=== PATIENT | male | born 1940 | race Caucasian/White ===

== ENCOUNTER 2017-06-15 15:37 | Emergency (ER) | payer MEDICARE, OTHER ==
[~2017-06-15] VITALS: Ht 170.2 cm; Wt 75.0 kg
[2017-06-15 15:57] VITALS: Ht 170.2 cm; Wt 75.0 kg
[2017-06-15 16:12] LABS: BASOPHILS % 0.8 % (0.0-2.0); EOSINOPHILS # 0.2 10^3/ul (0.0-0.5); EOSINOPHILS % 3.6 % (0.0-7.0); HEMATOCRIT 42.1 % (42.0-52.0); HEMOGLOBIN 14.1 g/dl (14.0-18.0); LYMPHOCYTES # 1.5 10^3/ul (0.8-2.9); LYMPHOCYTES % 29.4 % (15.0-51.0); MEAN CORPUSCULAR HEMOGLOBIN 31.9 pg (29.0-33.0); MEAN CORPUSCULAR HGB CONC 33.5 g/dl (32.0-37.0); MEAN CORPUSCULAR VOLUME 95.2 fl (82.0-101.0); MEAN PLATELET VOLUME 11.5 fl (7.4-10.4); MONOCYTE # 0.5 10^3/ul (0.3-0.9); MONOCYTES % 10.7 % (0.0-11.0); NEUTROPHIL # 2.7 10^3/ul (1.6-7.5); NEUTROPHILS % 55.1 % (39.0-77.0); PLATELET COUNT 126 10^3/UL (140-415); POSITIVE DIFF @See below; RED BLOOD COUNT 4.42 10^6/ul (4.70-6.10); RED CELL DISTRIBUTION WIDTH 12.8 % (11.5-14.5); WHITE BLOOD COUNT 4.9 10^3/ul (4.8-10.8)
[2017-06-15] MEDS ORDERED: SOD CHLORIDE 0.9% 1,000 ML IV STA (16:12)
[2017-06-15] MEDS ORDERED: DIPHTH/TET/ACEL PERTUSS (ADULT) 0.5 ML VIAL IM* ONE (16:30)
[2017-06-15] MEDS ORDERED: NEOMYC/POLYMYX/BACIT 30 GM OINT TOP ONE (16:30)
--- NOTE | 2017-06-15 16:34 | ERD ---
ER Documentation Chief Complaint Chief Complaint SYNCOPAL EPISODE WITH HIT HEAD AND LOC X 2 MIN HPI 77-year-old man brought in by EMS after syncopal episode shortly after walking under the hot sun for about half an hour. He fell forward and sustained abrasions to the face. The episode was witnessed and there was no seizure activity. Patient denies chest pain or shortness of breath, no palpitations, no headache or blurry vision. Patient was transported here by EMS without further complications. ROS All systems reviewed and are negative except as per history of present illness. Medications Home Meds Active Scripts Ibuprofen* (Motrin*) 400 Mg Tab, 400 MG PO Q8 for PAIN AND/OR INFLAMMATION, #30 TAB Prov:VIOLETTE GARCIA MD 06/15/17 PMhx/Soc Diabetes mellitus, heart murmur History of Surgery: No Anesthesia Reaction: No Hx Neurological Disorder: No Hx Respiratory Disorders: No Hx Cardiac Disorders: Yes (HEART MURMUR, SYNCOPAL EPISODE) Hx Psychiatric Problems: No Hx Miscellaneous Medical Probl: Yes (DM) Hx Alcohol Use: No Hx Substance Use: No Hx Tobacco Use: Yes Smoking Status: Former smoker FmHx Family History: No diabetes Physical Exam Vitals Vital Signs Date Time Temp Pulse Resp B/P Pulse Ox O2 Delivery O2 Flow Rate FiO2 06/15/17 19:07 97.9 77 17 105/60 98 Room Air 06/15/17 15:57 97.9 94 19 125/69 95 Physical Exam GENERAL: Well-developed, well-nourished, appears dehydrated, afebrile HEENT: Dry mucous membranes, pink conjunctiva, no cervical spine tenderness or step-off deformities, no goiter, no jaundice or icterus, extraocular movements intact without pain. No submandibular induration, and no pharyngeal erythema NEURO: Alert and oriented 3, cranial nerves II through XII intact bilaterally, pupils equal round reactive to light, no focal deficits or facial asymmetry, sensation intact distally Strength 5/5 in upper and lower extremities bilaterally CARDIAC: 4+ holosystolic murmur, no rubs or gallops LUNGS: Clear bilaterally no wheezing crackles or stridor ABDOMEN: Soft nontender, no guarding, no rigidity, no rebound, no psoas sign no obturator sign. Normoactive bowel sounds SKIN: Warm and dry to touch, multiple superficial skin abrasions to the face and forehead, no target lesions, and without ulcers EXTREMITIES: No clubbing cyanosis or edema, calves are bilaterally symmetrical, no Homans sign, no popliteal cord sign. Distal pulses equal and bilateral PSYCH: Normal affect without agitation or irritability Result Diagram: 06/15/17 1600 06/15/17 1600 Results 24 hrs Laboratory Tests Test 06/15/17 16:00 White Blood Count 4.910^3/ul Red Blood Count 4.4210^6/ul Hemoglobin 14.1g/dl Hematocrit 42.1% Mean Corpuscular Volume 95.2fl Mean Corpuscular Hemoglobin 31.9pg Mean Corpuscular Hemoglobin Concent 33.5g/dl Red Cell Distribution Width 12.8% Platelet Count 79696^3/UL Mean Platelet Volume 11.5fl Neutrophils % 55.1% Lymphocytes % 29.4% Monocytes % 10.7% Eosinophils % 3.6% Basophils % 0.8% Nucleated Red Blood Cells % 0.0/100WBC Neutrophils # 2.710^3/ul Lymphocytes # 1.510^3/ul Monocytes # 0.510^3/ul Eosinophils # 0.210^3/ul Basophils # 0.010^3/ul Nucleated Red Blood Cells # 0.010^3/ul Sodium Level 139mmol/L Potassium Level 3.8mmol/L Chloride Level 105mmol/L Carbon Dioxide Level 20mmol/L Anion Gap 18 Blood Urea Nitrogen 18mg/dl Creatinine 1.20mg/dl Glucose Level 277mg/dl Calcium Level 9.6mg/dl Total Bilirubin 0.7mg/dl Direct Bilirubin 0.00mg/dl Indirect Bilirubin 0.7mg/dl Aspartate Amino Transf (AST/SGOT) 41IU/L Alanine Aminotransferase (ALT/SGPT) 37IU/L Alkaline Phosphatase 66IU/L Troponin I 0.063ng/ml Total Protein 7.8g/dl Albumin 4.2g/dl Globulin 3.60g/dl Albumin/Globulin Ratio 1.16 Lipase 117U/L Current Medications Medications (Trade) Dose Ordered Sig/Thom Route PRN Reason Start Time Stop Time Status Last Admin Dose Admin Diphtheria/ Tetanus/Acell Pertussis (Adacel) 0.5 ml ONCE ONCE IM* 06/15/17 16:30 06/15/17 16:31 DC 06/15/17 16:19 Neomycin/ Polymyxin/ Bacitracin 1 applic 1 applic ONCE ONCE TOP 06/15/17 16:30 06/15/17 16:31 DC 06/15/17 16:19 Sodium Chloride (NS) 1,000 ml @ 1,000 mls/hr Q1H STAT IV 06/15/17 16:12 06/15/17 17:11 DC 06/15/17 16:18 Procedures/MDM IV line was established patient was placed on residential monitor rhythm strip revealed a sinus rhythm at about 80 bpm with upright P and T waves. Patient was afebrile EKG performed, read by me revealed a normal sinus rhythm 87 bpm, left axis deviation, right bundle branch block with a QRS duration of 120 ms, prolonged QT syndrome of 505 ms, no concerning ST elevations or depressions noted. One AP view of the chest performed, read by me reveals no acute infiltrates, normal mediastinum, sharp costophrenic and cardiac borders, no air under the diaphragm. Otherwise unremarkable chest x-ray. CT scan of the brain was performed that was negative for acute bleed mass or shift. I administered 1 L normal saline intravenously, triple antibiotic ointment to his abrasions, and Tdap 0.5 mL 1 IM CBC and electrolytes are normal, liver function tests were normal, troponin was negative. Differential diagnoses considered, included but not limited to acute coronary syndrome, pulmonary embolism, aortic dissection, abdominal aortic aneurysm, sepsis, stroke, meningitis, encephalitis, pneumonia, appendicitis, cholecystitis , bowel obstruction, pyelonephritis, nephrolithiasis, cystitis, as well as metabolic, hematologic, and electrolyte abnormalities. As well as abscess, cellulitis, fractures, and dislocations. Patient feels much better at this time, and vital signs are normal, symptoms have improved. I did give strict instructions to return to the ED if symptoms continue or worsen, patient will otherwise follow-up with primary care physician. Patient understood instructions and agreed to plan. Disclaimer: Inadvertent spelling and grammatical errors are likely due to EHR/ dictation software use and do not reflect on the overall quality of patient care. Also, please note that the electronic time recorded on this note does not necessarily reflect the actual time of the patient encounter. Departure Diagnosis: Primary Impression: Syncope Syncope type: unspecified Qualified Code: R55 - Syncope, unspecified syncope type Additional Impressions: Dehydration Facial abrasion Encounter type: initial encounter Qualified Code: S00.81XA - Abrasion of face, initial encounter Condition: VIOLETTE Houston MD Jun 15, 2017 16:33
[2017-06-15 16:35] LABS: ALBUMIN 4.2 g/dl (3.3-4.9); ALBUMIN/GLOBULIN RATIO 1.16; BILIRUBIN,INDIRECT 0.7 mg/dl (0-1.1); BILIRUBIN,TOTAL 0.7 mg/dl (0.2-1.3); CALCIUM 9.6 mg/dl (8.4-10.2); CREATININE 1.2 mg/dl (0.61-1.24); POTASSIUM 3.8 mmol/L (3.5-5.1); TOTAL PROTEIN 7.8 g/dl (6.1-8.1)
[2017-06-15 16:46] LABS: TROPONIN-I 0.063 ng/ml (0.00-0.12)
--- NOTE | 2017-06-15 17:49 | RADRPT ---
PROCEDURE: Noncontrast CT Head. CLINICAL INDICATION: Intracranial hemorrhage. TECHNIQUE: Noncontrast CT of the head was obtained. The administered radiation dose was CTDI vol = 43.11 mGy, DLP = 823.60 mGy-cm. One or more of the following dose reduction techniques were used: Au tomated exposure control, Adjustment of the mA and/or kV according to patient size, or Use of iterat femi reconstruction technique. COMPARISON: There are no similar studies submitted for comparison. FINDINGS: There is mild to moderate generalized cerebral volume loss. There is mild periventricular hypoattenu ation suggesting chronic microvascular ischemic changes. There are mild vascular calcifications wi thin the intracranial carotid arteries. 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 There is no loss of carrizales-white differentiation to suggest acute territorial infarction. There is no acute intracranial hemorrhage. There is no mass effect. No midline shift is identified. The patient is status post bilateral lens surgery. There is mild left sphenoid sinus mucosal thickening. No destructive osseous lesion is identified. IMPRESSION: 1. No acute intracranial hemorrhage. 2. Mild to moderate generalized cerebral volume loss. 3. Mild chronic microvascular ischemic changes. 4. Chronic right external capsule lacunar infarction. Further findings as detailed above. RPTAT: PP .Juan Carlos Barriga MD, MD Date Time Electronically viewed and signed by .Juan Carlos Barriga MD, on 06/15/2017 17:48 .F/
[2017-06-15] MEDS ORDERED: IBUP400T22 PO (18:13)
[2017-06-15 19:07] VITALS: BP 105/60; PULSE 77; RESP 17; TEMP 97.9
== END 2017-06-15 19:07 | disposition home or self-care (01) ==
LOC: E/R 15:37
DX: R55 Syncope and collapse (principal); S00.81XA Abrasion of other part of head, initial encounter; E11.9 Type 2 diabetes mellitus without complications; W01.198A Fall on same level from slipping, tripping and stumbling with subsequent striking against other object, initial encounter; Y92.9 Unspecified place or not applicable; Z23 Encounter for immunization; Z87.891 Personal history of nicotine dependence
CPT/HCPCS: 70450; 80053; 83690; 84484; 85025; 90471; 90715; 93005; 99285; J7030